=== PATIENT | male | born 1965 | race Caucasian/White ===

== ENCOUNTER 2018-02-16 07:51 | Day surgery (SDC) | payer MEDICAID, SELFPAY ==
[2018-02-16 08:14] VITALS: BP 125/77; PULSE 74; RESP 18; TEMP 36.6; O2SAT 98
[2018-02-16] MEDS: Lactated Ringers 1,000 ML 30 ML IV (08:44)
--- NOTE | 2018-02-16 09:50 | W.PM.DSUDISC ---
Discharge Plan Disposition Patient Disposition: HOME Condition: Good Discharge Details Reason For Visit: Colorectal cancer screening Attending Provider: Yury Horowitz Primary Care Provider: Kelsy Stearns Home Meds and New Rx's Prescriptions: Continue fluticasone 16 GM spray,suspension 50 mcg NS DAILY Qty: 3 RF: 3 atorvastatin 40 MG tablet 40 mg PO DAILY Qty: 90 RF: 3 sertraline 50 MG tablet 50 mg PO DAILY Qty: 90 RF: 3 budesonide-formoterol [Symbicort] 10.2 GM HFA aerosol inhaler 2 puff Inhalation BID Qty: 3 RF: 3 aspirin [Aspir-81] 81 MG tablet,delayed release (DR/EC) 81 mg PO DAILY RF: 0 nortriptyline 10 MG capsule 10 mg PO HS Qty: 90 RF: 3 omeprazole 20 MG capsule,delayed release(DR/EC) 20 mg PO DAILY Qty: 90 RF: 3 albuterol sulfate [ProAir HFA] 8.5 GM HFA aerosol inhaler 1 - 2 puff Inhalation Q4-6H PRN Qty: 3 RF: 3 Varicella-Zoster Ge/As01b/Pf [Shingrix Vial Kit] 50 MCG INJ 50 mcg IM ONCE Qty: 1 RF: 1 Discontinued bisacodyl [Dulcolax (bisacodyl)] 5 mg tablet,delayed release (DR/EC) 5 mg PO ONCE Qty: 4 RF: 0 polyethylene glycol 3350 [Miralax] 17 gram/dose powder 255 gm PO ONCE Qty: 255 RF: 0 Discharge Instructions Instructions: Colonoscopy (DC) Activity:: Activity as Tolerated Diet:: As Tolerated Discharge Orders Discharge Orders: Discharge Order (Routine); Ordered 02/16/18 Ordered By: Yury Horowitz DS: Diagnosis Discharge Diagnosis (1) Encounter for colorectal cancer screening: Status: Acute
--- NOTE | 2018-02-16 09:52 | W.COLOREPORT ---
Date of service: 02/16/18 Time of Service: 09:52 Colonoscopy Report Date of procedure: 02/16/18 Pre-op diagnosis general: Colorectal cancer screening Post-op diagnosis procedure note: other (Normal Colonoscopy to the cecum) Procedure: Colonoscopy to the cecum Surgeon: Yury Horowitz Anesthesia proc note operative: MAC (Wali Brown, REFRIGERATION SYSTEM INSTALLER: ASA 3 Mallampati class 2) Estimated blood loss (mL): 0 Complications: None Disposition: same day Indications: 53-year-old gentleman presenting for colorectal cancer screening by colonoscopy. He has never had a colonoscopy before. He has been asymptomatic. He has no family history of colorectal cancer. Prep: Miralax/Dulcolax (Prep Quality good) Findings: In examining the colon from cecum to anus, no abnormalities were noted. Procedure Description: The patient was seen in the day surgery waiting area. His identification was confirmed, and procedure check. He was then brought to the procedure room. Monitoring for telemetry, blood pressure, oxygen saturation, and end tidal CO2 monitoring were applied. An appropriate time out was performed to confirm, identification, allergies, medication, procedure, was performed. Sedation was titrated for affect by the REFRIGERATION SYSTEM INSTALLER; Once adequate sedation was achieved, I performed a inspection of the external perineum, and a digitial rectal examination. No significant external abnormalities were noted. On digital rectal examination, there was no blood, no masses, good rectal tone, and a normal prostate. I advanced the colonoscope from the anus to the cecum under direct visualization. The cecum was identified by the ileal-cecal valve, and the appendiceal orifice. The scope was then withdrawn in circumferential manner from the cecum to the rectum. No abnormalites were noted in the colon. The scope was then withdrawn into the rectum, and retroflexed. No abnormalities were noted of the rectum or anorectal junction. The scope was then withdrawn, terminating the procedure. There were no complications during the procedure, and the patient tolerated the procedure well. He was returned to the day surgery recovery area in good condition. Plan: Will continue with routine screening for colorectal cancer according to current consensus guidelines, which is currently 10 years.
[2018-02-16 10:58] VITALS: BP 125/77; PULSE 68; RESP 16; TEMP 35.6; O2SAT 99
== END 2018-02-16 11:20 | disposition home or self-care (01) ==
PROVIDERS: PCP Nurse Practitioner Family; Visit Provider Surgery
PROC: 0DJD8ZZ Inspection of Lower Intestinal Tract, Via Natural or Artificial Opening Endoscopic (ICD-10-PCS; CPT 45378; principal; 2018-02-16 09:30)
DX: Z12.11 Encounter for screening for malignant neoplasm of colon (principal); J44.9 Chronic obstructive pulmonary disease, unspecified; G47.33 Obstructive sleep apnea (adult) (pediatric); F17.210 Nicotine dependence, cigarettes, uncomplicated
CPT/HCPCS: 45378; J2250; J3010

== ENCOUNTER 2018-07-02 00:06 | Outpatient (CLI) | payer MEDICAID, SELFPAY ==
--- NOTE | 2018-07-02 08:30 | ETT_ITS ---
*[facility]* *[facility]* [address] [place] [address] Stress Electrocardiography Will protocol Date of study: 07/02/2018 *PATIENT PRESENTATION* Height: 162.6cm (64in) Blood Pressure: Weight: 73.6kg (162lb) BSA: 1.84m^2 Referring physician: Kelsy Stearns Ordering physician: Kelsy Stearns Impressions: Normal study after maximal exercise. Summary: 1. Stress ECG conclusions: The stress ECG is negative. Morales treadmill score: 10. This score predicts a low risk of cardiac events. 2. Stress: The target heart rate was achieved. Indication: R07.9, R06.09. History: REASON FOR TESTING: PATIENT REPORTING LEFT SIDED CHEST PAIN WITH ACTIVITY WHICH RESOLVES QUICKLY WITH REST. SIGNIFICANT PAST MEDICAL HISTORY: GERD. SMOKING STATUS: SMOKED FOR 40 YEARS 1.5 PPD. EXERCISE ROUTINE: DAILY ADL'S. PMH: COPD. Asthma. Risk factors: Family history of coronary artery disease. Current tobacco use. Dyslipidemia. Cholesterol: 158mg/dl. HDL: 38mg/dl. LDL: 112mg/dl. Triglycerides: 67mg/dl. ALLERGIES: NO KNOWN ALLERGIES. MEDICATIONS: FLUTICASONE NASAL SPRAY DAILY, SERTRALINE 50 MG DAILY, ASPIRIN 81 MG DAILY, NORTRIPTYLINE 10 MG HS, OMEPRAZOLE 20 MG DAILY, BUDESONIDE/FORMOTEROL HFA 160/4.5--2 PUFFS DAILY, ATORVASTATIN 40 MG DAILY, SUMATRIPTAN 50 MG PRN, TOPIRAMATE 25 MG BID, UMECLIDINIUM/VILANTEROL INHALATION DAILY, PROAIR HFA PRN. Protocol: Will protocol. Baseline ECG: SINUS RHYTHM. HR 72. Stress protocol: + +---+ + !Stage !HR !BP (mmHg) ! + +---+ + !Baseline supine !72 !134/76 (95) ! + +---+ + !Baseline standing !74 !136/72 (93) ! + +---+ + !Stage I; 1.7mph, 10degrees; 3 min !112!160/84 (109)! + +---+ + !Stage II; 2.5mph, 12degrees; 3 min !120!190/88 (122)! + +---+ + !Stage III; 3.4mph, 14degrees; 3 min!135!184/90 (121)! + +---+ + !Peak stress !145! ! + +---+ + !Recovery; 1 min !122!160/82 (108)! + +---+ + !Recovery; 3 min !86 !132/82 (99) ! + +---+ + !Recovery; 6 min !87 !128/88 (101)! + +---+ + * Stress results: STRESS TEST ENDED IN 10 MINUTES 40 SECONDS. NORMAL HEART RATE AND BLOOD PRESSURE TO EXERCISE TESTING. MAX HEART RATE: 145 87 % OF TARGET HEART RATE. PATIENT REACHED TARGET HEART RATE AT 9 MINUTES 40 SECONDS AT A NORMAL SPEED (4.2)/GRADE (16) OF STAGE 4 OF EXERCISE. THEN MODIFIED SPEED BRIEFLY AT STAGE 4 DUE TO PATIENT FATIGUE. AT 10 MINUTES 8 SECONDS OF MODIFIED STAGE 4, SPEED 3.5, GRADE 16. AT 10 MINUTES 21 SECONDS OF MODIFIED STAGE 4, SPEED 3, GRADE 16. AT 10 MINUTES 36 SECONDS OF MODIFIED STAGE 4, SPEED 2.7, GRADE 16. EXERCISE TESTING ENDED AT 10 MINUTES 36 SECONDS OF MODIFIED STAGE 4 DUE TO FATIGUE. MET'S: 11.71. OCCASIONAL PVC DURING PEAK EXERCISE. NO ANGINA. NO SIGNIFICANT ST SEGMENT CHANGES. FUNCTIONAL CAPACITY: AVERAGE CAPACITY. Maximal heart rate during stress was 145bpm (87% of maximal predicted heart rate). The maximal predicted heart rate was 166bpm. The target heart rate was achieved. The rate-pressure product for the peak heart rate and blood pressure was 15108kn Hg/min. Stress ECG: The stress ECG is negative. Morales treadmill score: 10. This score predicts a low risk of cardiac events. Study data: Rene Schreiber MD supervised and was readily available during the procedure. This study was interpreted by [facility]. Study status: Routine. Consent: The risks, benefits, and alternatives to the procedure were explained to the patient and informed consent was obtained. Procedure: Initial setup. A baseline ECG was recorded. Surface ECG leads and manual cuff blood pressure measurements were monitored. Heart sounds: Normal. Lung sounds: Abnormal. Treadmill exercise testing was performed using the Will protocol. Study completion: The patient tolerated the procedure well and was discharged from the lab. Discharge: The patient left the laboratory in stable condition. Birthdate: Patient birthdate: 1965. Sex: Gender: male. Study date: Study date: 07/02/2018. Study time: 00:01 AM. Electronically signed by Rene Schreiber MD 07/02/2018 10:49
== END 2018-07-02 00:26 ==
PROVIDERS: PCP Nurse Practitioner Family; Visit Provider Family Medicine
DX: R07.9 Chest pain, unspecified (principal); R06.09 Other forms of dyspnea; F17.200 Nicotine dependence, unspecified, uncomplicated; E78.5 Hyperlipidemia, unspecified; Z82.49 Family history of ischemic heart disease and other diseases of the circulatory system
CPT/HCPCS: 93017

== ENCOUNTER 2018-07-04 09:44 | Outpatient (CLI) | payer MEDICAID, SELFPAY ==
[2018-07-04 10:56] LABS: Hemoglobin A1C 5.7 % (4.5-6.2)
[2018-07-04 11:25] LABS: Anion Gap 8.6 mmol/L (3-11); BUN 15 mg/dL (7-18); CO2 27.4 mmol/L (21.0-32.0); CREATININE 0.89 mg/dL (0.70-1.30); Calcium 9.6 mg/dL (8.5-10.1); Chloride 105 mmol/L (98-107); Cholesterol 135 mg/dL (50-200); Glucose 97 mg/dL (70-100); HDL Cholesterol 28 mg/dL (40-60); LDL CHOLESTEROL 85 mg/dL (<100); Potassium 4.5 mmol/L (3.5-5.1); Sodium 141 mmol/L (136-145); Triglyceride 110 mg/dL (30-150)
== END 2018-07-04 10:04 ==
PROVIDERS: PCP Nurse Practitioner Family; Visit Provider Nurse Practitioner Family
DX: R73.01 Impaired fasting glucose (principal); Z13.1 Encounter for screening for diabetes mellitus; E78.5 Hyperlipidemia, unspecified
CPT/HCPCS: 36415; 80048; 80061; 83721; 83036

== ENCOUNTER 2019-05-31 02:15 | Outpatient (CLI) | payer OTHER, MEDICAID, SELFPAY ==
[2019-05-31] MEDS: Inhaler, Assist Device 1 EACH MC (10:27)
[2019-05-31] MEDS: Albuterol HFA 18 GM 200 PUFF INH IH (10:27)
== END 2019-05-31 02:35 ==
PROVIDERS: PCP Nurse Practitioner Family; Visit Provider Pediatrics Pediatric Rheumatology
DX: J44.9 Chronic obstructive pulmonary disease, unspecified (principal)
CPT/HCPCS: 94060; 94729

== ENCOUNTER 2019-07-04 00:45 | Outpatient (CLI) | payer MEDICAID, SELFPAY ==
--- NOTE | 2019-07-04 12:51 | DI.CTLCSR_ITS ---
EXAM: CT CHEST LUNG CANCER SCREEN CLINICAL HISTORY: NICOTINE DEPENDENCE, F17.200 TECHNIQUE: Noncontrast low-dose screening protocol. COMPARISON: No exams were available for comparison FINDINGS: The heart size is normal. Aorta is normal in diameter. There are mild aortic calcifications. There are no pleural or pericardial effusions. There are changes of severe paraseptal and mild to moderat e central lobular emphysema. There is scarring at the right lung apex. No pulmonary nodules are see n. IMPRESSION: Lung RADS Cat 1 - Negative: No nodules and definitely benign nodules. Annual low-dose screening CT i s recommended.
== END 2019-07-04 01:05 ==
PROVIDERS: PCP Nurse Practitioner Family; Visit Provider Internal Medicine
DX: Z12.2 Encounter for screening for malignant neoplasm of respiratory organs (principal); F17.200 Nicotine dependence, unspecified, uncomplicated; J43.8 Other emphysema
CPT/HCPCS: G0297

== ENCOUNTER 2019-11-13 04:25 | Outpatient (CLI) | payer MEDICAID, SELFPAY ==
[2019-11-13 13:49] LABS: Hemoglobin A1C 5.5 % (3.8-5.6)
[2019-11-13 13:58] LABS: Anion Gap 8.4 mmol/L (3-11); BUN 12 mg/dL (7-18); CO2 27.6 mmol/L (21.0-32.0); CREATININE 0.99 mg/dL (0.70-1.30); Calcium 9.2 mg/dL (8.5-10.1); Calculated LDL 81 mg/dL (<100); Chloride 104 mmol/L (98-107); Cholesterol 126 mg/dL (<200); Glucose 98 mg/dL (74-106); HDL Cholesterol 38 mg/dL (40-60); Potassium 4.2 mmol/L (3.5-5.1); Sodium 140 mmol/L (136-145); Triglyceride 39 mg/dL (<150)
== END 2019-11-13 04:45 ==
PROVIDERS: PCP Nurse Practitioner Family; Visit Provider Nurse Practitioner Family
DX: E78.5 Hyperlipidemia, unspecified (principal); R73.01 Impaired fasting glucose; Z51.81 Encounter for therapeutic drug level monitoring
CPT/HCPCS: 36415; 80048; 80061; 83036

== ENCOUNTER 2019-12-23 01:22 | Outpatient (CLI) | payer MEDICAID, SELFPAY ==
--- NOTE | 2019-12-23 | DI.CT_ITS ---
EXAM: CT CHEST WO CLINICAL HISTORY: COPD,J44.9,F/U RT APICAL MASS. TECHNIQUE: Imaging protocol: Axial computed tomography images were obtained and coronal and sagittal reformatted images were created and reviewed. COMPARISON: CT CT CHEST LUNG CANCER SCREEN from 07/04/2019 FINDINGS: Tracheobronchial tree: Patent where visualized. Mediastinum and Kamala: No dominant adenopathy or fluid collection. Pulmonary parenchyma: The masslike density in the right lung apex is unchanged. There is a calcified granuloma in the left lower lobe. Severe paraseptal and moderately severe centrilobular emphysema. Lung Nodules: No new pulmonary nodules are appreciated. Pleura: No effusion or pneumothorax. Heart: The heart is not dilated. No coronary artery calcifications are seen. No pericardial effusion. Aorta: Thoracic aorta non-dilated.Atherosclerosis. Upper abdomen: Unremarkable. Bones: Mild degenerative changes. IMPRESSION: 1. Stable masslike density in the right lung apex. 2. Paraseptal and centrilobular emphysema. 3. No new pulmonary nodules. RADIATION DOSE DELIVERED: 71.47mGy.cm Total DLP 71.47mGy.cm Total DLP 71.47mGy.cm Total DLP 71.47mGy.cm Total DLP 71.47mGy.cm Total DLP DATA REPOSITORY: All CT scans at this facility are submitted to the National Radiology Data Registry (NRDR) Dose Index Registry (DIR) with the [employer] (ACR). RADIATION OPTIMIZATION: All CT scans at this facility use at least one of these dose optimization te chniques: automated exposure control; mA and/or kV adjustment per patient size (includes targeted exa ms where dose is matched to clinical indication); or iterative reconstruction.
== END 2019-12-23 01:42 ==
PROVIDERS: PCP Nurse Practitioner Family; Visit Provider Internal Medicine
DX: J44.9 Chronic obstructive pulmonary disease, unspecified (principal); R91.8 Other nonspecific abnormal finding of lung field; J43.2 Centrilobular emphysema
CPT/HCPCS: 71250

== ENCOUNTER 2020-11-05 00:37 | Emergency (ER) | payer MEDICAID, SELFPAY ==
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
[2020-11-05 00:39] VITALS: BP 157/87; PULSE 87; RESP 16; TEMP 36.4; O2SAT 98
[2020-11-05] MEDS: Ibuprofen 600 MG TAB PO (02:09)
== END 2020-11-05 03:05 | disposition home or self-care (01) ==
LOC: ER 02:17
PROVIDERS: Emergency Provider Emergency Medicine; PCP Nurse Practitioner Family
DX: S00.83XA Contusion of other part of head, initial encounter (principal); Y04.2XXA Assault by strike against or bumped into by another person, initial encounter
CPT/HCPCS: 99283; 99282

== ENCOUNTER 2021-01-08 02:39 | Outpatient (CLI) | payer MEDICAID, SELFPAY ==
[2021-01-08 13:32] LABS: HCT 48.1 % (40.0-50.0); MCH 31.7 pg (27.0-33.0); MCHC 33.3 % (32.0-36.0); MCV 95.4 fL (80-95); MPV 8.6 fL (8.0-11.0); Platelet Count 381 10^3/uL (130-400); RBC 5.04 10^6/uL (4.36-5.78); RDW 13.6 % (11.8-14.1); RDW-SD 48.2 fL; WBC 8.99 10^3/uL (4.4-10.8)
[2021-01-08 15:43] LABS: Anion Gap 10.8 mmol/L (3-11); BUN 14 mg/dL (7-18); CO2 26.2 mmol/L (21.0-32.0); Calcium 9.1 mg/dL (8.5-10.1); Calculated LDL 95 mg/dL (<100); Chloride 103 mmol/L (98-107); Cholesterol 146 mg/dL (<200); Glucose 104 mg/dL (74-106); HDL Cholesterol 35 mg/dL (40-60); Potassium 4.3 mmol/L (3.5-5.1); Sodium 140 mmol/L (136-145); Triglyceride 80 mg/dL (<150)
== END 2021-01-08 02:40 | disposition home or self-care (01) ==
LOC: LBO 02:39
PROVIDERS: PCP Nurse Practitioner Family; Visit Provider Nurse Practitioner Family
DX: Z12.2 Encounter for screening for malignant neoplasm of respiratory organs; R73.01 Impaired fasting glucose; Z51.81 Encounter for therapeutic drug level monitoring; E78.5 Hyperlipidemia, unspecified
CPT/HCPCS: 36415; 80048; 80061; 85027

== ENCOUNTER 2021-01-08 03:17 | Outpatient (CLI) | payer MEDICAID, SELFPAY ==
--- NOTE | 2021-01-08 08:00 | DI.CTLCSR_ITS ---
Exam(s) CT CHEST LUNG CANCER SCREEN EXAM: CT CHEST LUNG CANCER SCREEN CLINICAL HISTORY: Screening for lung cancer, CURRENT SMOKER, F17.210, Z12.2 TECHNIQUE: CT examination of the chest was performed utilizing low-dose lung cancer screening protoc ol. COMPARISON: CT CT CHEST WO from 12/23/2019 FINDINGS: Images obtained through the upper abdomen show unremarkable appearance of visualized portions of the liver and spleen. There is no mediastinal or hilar adenopathy. Mediastinal vascular structures appear intact by noncon trast criteria. Tracheobronchial tree appears intact. No pleural effusion or pleural-based mass. There are changes of severe bullous emphysema as noted on prior examinations. There is a new spicula deborah nodule associated with the minor fissure on the right, this measures 11 x 12 x 6 millimeters in d iameter. This was not present on prior CT of December 2019. A left upper lobe intrapulmonary nodule which is noncalcified is again noted and unchanged. Calcifie d left lower lobe nodule is also noted and unchanged. IMPRESSION: New suspicious lesion of the right lung in a patient with severe bullous emphysema. PET-CT or tissue sampling recommended. Lung RADS Cat 4B - Suspicious: Findings for which additional diagnostic testing and/or tissue samplin g is recommended. RADIATION DOSE DELIVERED: 77.76mGy.cm Total DLP 1.84mGy CTDIvol 77.76mGy.cm Total DLP 1.84mGy CTDIvol RADIATION OPTIMIZATION: All CT scans at this facility use at least one of these dose optimization te chniques: automated exposure control; mA and/or kV adjustment per patient size (includes targeted exa ms where dose is matched to clinical indication); or iterative reconstruction.
== END 2021-01-08 03:37 ==
PROVIDERS: PCP Nurse Practitioner Family; Visit Provider Nurse Practitioner Family
DX: F17.210 Nicotine dependence, cigarettes, uncomplicated (principal); Z12.2 Encounter for screening for malignant neoplasm of respiratory organs; R91.1 Solitary pulmonary nodule; J43.9 Emphysema, unspecified
CPT/HCPCS: 71271

== ENCOUNTER 2021-07-01 21:15 | Outpatient (CLI) | payer MEDICAID, SELFPAY ==
--- NOTE | 2021-07-01 11:29 | DI.RAD_ITS ---
Exam(s) XR THUMB LT EXAM: XR THUMB LT EXAM DATE/TIME: CLINICAL HISTORY: Chronic lt thumb pain, remote h/o fx M79.645 PAIN lT FINGER G89.29 CHRONIC. TECHNIQUE: 2D digital imaging was performed of the left finger. Four views were obtained. PA/AP, o blique, and lateral views were obtained. COMPARISON: None. FINDINGS: BONES: No acute fracture is present. No bony destructive lesion is seen. JOINTS: No dislocation is present. Mild periarticular spurring is seen at the interphalangeal joint of the thumb. SOFT TISSUE: Normal. IMPRESSION: Mild degenerative changes of the left thumb. DATA REPOSITORY: RADIATION DOSE DELIVERED:
== END 2021-07-01 21:35 ==
PROVIDERS: PCP Nurse Practitioner Family; Visit Provider Nurse Practitioner Family
DX: M79.644 Pain in right finger(s) (principal); G89.29 Other chronic pain; M25.641 Stiffness of right hand, not elsewhere classified
CPT/HCPCS: 73140

== ENCOUNTER → 2021-12-27 01:09 | Outpatient (CLI) | payer MEDICAID, SELFPAY ==
--- NOTE | 2021-12-27 08:00 | DI.CT_ITS ---
Exam(s) CT CHEST W EXAM: CT CHEST W CLINICAL HISTORY: 6mo f/u RUL opacity/nodule,COMPARE WITH PET CT 09/08/21,R91.8. TECHNIQUE: Multi planar reconstructions were performed. CONTRAST MATERIAL: Omnipaque 350; 75 cc COMPARISON: CT CT CHEST LUNG CANCER SCREEN from 01/08/2021 FINDINGS: CHEST: LUNGS: Severe emphysematous disease again noted in both lung linton. The previously described spicul ated nodule in the right upper lobe is again noted but has somewhat decreased in size, presently chin uring 8 by 9 millimeters, previously measuring 11 x 12 millimeters. No new nodules in either lung fi eld and there are no pleural effusions. Calcified granuloma in the left lower lobe again noted. MEDIASTINUM: There is no hilar nor mediastinal adenopathy. Visualized thyroid unremarkable. CARDIAC: Heart size is normal. There is no pericardial effusion.Caliber of the thoracic aorta is wit hin normal limits. VISUALIZED UPPER ABDOMEN:There are no significant adrenal masses. No splenomegaly. OSSEOUS: No significant osseous lesions.No fractures. None. IMPRESSION: 1. The previously described spiculated nodule in the right upper lobe has decreased in size when comp ared to 01/08/2021, presently measuring approximately 8 x 9 millimeters. No other significant lung n odules evident and no pleural effusions. No intrathoracic adenopathy. 2. 3. RADIATION DOSE DELIVERED: 481.85mGy.cm Total DLP DATA REPOSITORY: All CT scans at this facility are submitted to the National Radiology Data Registry (NRDR) Dose Index Registry (DIR) with the [employer] (ACR). RADIATION OPTIMIZATION: All CT scans at this facility use at least one of these dose optimization te chniques: automated exposure control; mA and/or kV adjustment per patient size (includes targeted exa ms where dose is matched to clinical indication); or iterative reconstruction.
[2021-12-27] MEDS: Omnipaque 350 MG/ML 100 ML BTL IJ (15:51)
== END ==
PROVIDERS: PCP Nurse Practitioner Family; Visit Provider Nurse Practitioner Family
DX: R91.1 Solitary pulmonary nodule
CPT/HCPCS: 71260; J3490

== ENCOUNTER 2022-01-26 13:40 | Outpatient (REF) | payer MEDICAID, SELFPAY ==
[2022-01-28 10:37] LABS: COVID-19 RT-PCR UVMMC Result Presumptive Positive (Negative)
== END 2022-01-26 13:41 | disposition home or self-care (01) ==
LOC: LBN 13:40
PROVIDERS: PCP Nurse Practitioner Family; Visit Provider Nurse Practitioner Family
DX: Z20.822 Contact with and (suspected) exposure to COVID-19 (principal); R05.8 Other specified cough
CPT/HCPCS: U0003

== ENCOUNTER 2022-02-02 02:59 | Outpatient (CLI) | payer MEDICAID, SELFPAY ==
[2022-02-02 11:04] LABS: Abs Immature Grans 0.07 10^3/uL (0.0-0.06); Absolute Lymphocyte Count 3.23 10^3/uL (1.2-3.4); Absolute Monocyte Count 0.86 10^3/uL (0.1-0.8); Absolute Neutrophil Count 6.92 10^3/uL (1.2-6.7); Eosinophils % 2.9; HCT 48.3 % (40.0-50.0); HGB 16.1 g/dL (13.5-17.5); Immature Grans % 0.6; MCH 31.8 pg (27.0-33.0); MCHC 33.3 % (32.0-36.0); MCV 96 fL (80-95); MPV 8.3 fL (8.0-11.0); Monocytes % 7.5; Platelet Count 477 10^3/uL (130-400); RBC 5.06 10^6/uL (4.36-5.78); RDW 14.1 % (11.8-14.1); RDW-SD 49.6 fL; WBC 11.53 10^3/uL (4.4-10.8)
[2022-02-02 11:05] LABS: Absolute Basophil Count 0.12 10^3/uL (0.0-0.2); Absolute Eosinophil Count 0.33 10^3/uL (0.0-0.7)
[2022-02-02 11:46] LABS: ALT 31 U/L (16-63); AST 11 U/L (15-37); Albumin 3.3 g/dL (3.4-5.0); Alkaline Phosphatase 130 U/L (46-116); Anion Gap 7.5 mmol/L (3-11); BUN 14 mg/dL (7-18); Bilirubin, Total 0.3 mg/dL (0.2-1.0); CO2 29.5 mmol/L (21.0-32.0); Calcium 9.2 mg/dL (8.5-10.1); Calculated LDL 86 mg/dL (<100); Chloride 103 mmol/L (98-107); Cholesterol 137 mg/dL (<200); Estimated GFR 87.24 (mL/min/1.73m2); Glucose 122 mg/dL (74-106); HDL Cholesterol 40 mg/dL (40-60); Sodium 140 mmol/L (136-145); Total Protein 7.6 g/dL (6.4-8.2); Triglyceride 58 mg/dL (<150)
== END 2022-02-02 03:00 | disposition home or self-care (01) ==
LOC: LBO 02:59
PROVIDERS: PCP Nurse Practitioner Family; Visit Provider Nurse Practitioner Family
DX: E78.5 Hyperlipidemia, unspecified (principal); R73.01 Impaired fasting glucose; Z79.899 Other long term (current) drug therapy
CPT/HCPCS: 36415; 80053; 80061; 85025

== ENCOUNTER → 2022-02-21 01:21 | Outpatient (CLI) | payer MEDICAID, SELFPAY ==
--- NOTE | 2022-02-21 08:08 | DI.RAD_ITS ---
Exam(s) XR CHEST 2V PA LATERAL EXAM: XR CHEST 2V PA LATERAL CLINICAL HISTORY: r/o secondary bacterial PNA, recent COVID,U07.1,exac of copd TECHNIQUE: 2D digital imaging was performed. COMPARISON: CT CT CHEST W from 12/27/2021 FINDINGS: HEART: Normal size. Aorta: PULMONARY VASCULATURE: Normal. LUNGS: Emphysematous changes and mild scarring. Left-sided calcified nodule. No infiltrates. PLEURAL SPACE: No pleural effusion or pneumothorax. BONE:Unremarkable for age. IMPRESSION: No acute abnormality. DATA REPOSITORY: RADIATION DOSE DELIVERED:
== END ==
PROVIDERS: PCP Nurse Practitioner Family; Visit Provider Nurse Practitioner Family
DX: J44.1 Chronic obstructive pulmonary disease with (acute) exacerbation (principal); Z86.16 Personal history of COVID-19; R91.1 Solitary pulmonary nodule
CPT/HCPCS: 71046

== ENCOUNTER → 2022-12-30 01:00 | Outpatient (CLI) | payer MEDICAID, SELFPAY ==
--- NOTE | 2022-12-30 12:54 | DI.CTLCSR_ITS ---
Exam(s) CT CHEST LUNG CANCER SCREEN EXAM: CT CHEST LUNG CANCER SCREEN CLINICAL HISTORY: Screening for lung cancer,CURRENT SMOKER, F17.210 TECHNIQUE: Imaging Protocol: Axial computed tomography images with coronal and sagittal reformatted images were created and reviewed. Low dose screening protocol. COMPARISON: CT CT CHEST W from 12/27/2021 FINDINGS: Tracheobronchial tree: No bronchiectasis or mucus plugging.. Mediastinum and Kamala: No dominant adenopathy or fluid collection. Pulmonary parenchyma: No consolidation or dominant measurable mass. Severe emphysematous changes in t he upper lobes. Area of scarring noted in the right upper lobe. Ischial area of scarring noted at t he minor fissure. Scarring left lung apex stable small nodule left upper lobe, adjacent to left hear t border.. Lung Nodules: Calcified granuloma left lower lobe. Pleura: No effusion. No pneumothorax. Heart: The heart is not dilated. No coronary artery calcifications are seen. Aorta: Thoracic aorta non-dilated. Minimal calcifications. Upper abdomen: Unremarkable. Bones: Unremarkable for age. Soft Tissues: Unremarkable. IMPRESSION: No suspicious pulmonary nodules. Severe emphysematous changes and areas of scarring. Lung RADS Cat 1 - Negative: No nodules and definitely benign nodules Lung-RADS 1.0 CATEGORIES: Category 0 - Prior chest CT exam(s) being located for comparison. Category 1 - Annual screening in 12 months. No nodules or definitely benign nodules. Category 2 - Annual screening in 12 months. Benign appearance. Nodules with low likelihood of becomin g active cancer. Category 3 - 6-month follow-up. Probably benign. Short-term follow-up suggested. Nodules with low lik elihood of becoming active cancer. Category 4A - 3-month follow-up and CT/PET if >8 mm in size. Suspicious finding. Findings which requi re additional testing. Category 4B - Findings which require additional testing and tissue sampling. Category 4X - Category 3 or 4 nodules with additional features or imaging findings that increases the suspicion of malignancy. Modifier S- Potentially clinically significant findings (non lung cancer) RADIATION DOSE DELIVERED: 77.81mGy.cm Total DLP DATA REPOSITORY: All CT scans at this facility are submitted to the National Radiology Data Registry (NRDR) Dose Index Registry (DIR) with the [employer] ([employer]). RADIATION OPTIMIZATION: All CT scans at this facility use at least one of these dose optimization te chniques: automated exposure control; mA and/or kV adjustment per patient size (includes targeted exa ms where dose is matched to clinical indication); or iterative reconstruction.
== END ==
PROVIDERS: PCP Nurse Practitioner Family; Visit Provider Nurse Practitioner Family
DX: F17.210 Nicotine dependence, cigarettes, uncomplicated (principal); Z12.2 Encounter for screening for malignant neoplasm of respiratory organs
CPT/HCPCS: 71271

== ENCOUNTER 2023-02-03 02:31 | Outpatient (CLI) | payer MEDICAID, SELFPAY ==
[2023-02-03 09:27] LABS: Abs Immature Grans 0.03 10^3/uL (0.0-0.06); Absolute Eosinophil Count 0.22 10^3/uL (0.0-0.7); Absolute Lymphocyte Count 2.29 10^3/uL (1.2-3.4); Absolute Monocyte Count 0.69 10^3/uL (0.1-0.8); Absolute Neutrophil Count 5.72 10^3/uL (1.2-6.7); Basophils % 1.1; Eosinophils % 2.4; HCT 50.1 % (40.0-50.0); HGB 16.7 g/dL (13.5-17.5); Immature Grans % 0.3; Lymphocytes % 25.3; MCH 31.6 pg (27.0-33.0); MCHC 33.3 % (32.0-36.0); MCV 95 fL (80-95); MPV 8.5 fL (8.0-11.0); Monocytes % 7.6; Neutrophils % 63.3; Platelet Count 390 10^3/uL (130-400); RBC 5.28 10^6/uL (4.36-5.78); RDW 13.9 % (11.8-14.1); RDW-SD 49.2 fL; WBC 9.05 10^3/uL (4.4-10.8)
[2023-02-03 09:45] LABS: Hemoglobin A1C 5.8 % (<5.7)
[2023-02-03 09:53] LABS: ALT 27 U/L (16-63); AST 14 U/L (15-37); Albumin 3.6 g/dL (3.4-5.0); Alkaline Phosphatase 115 U/L (46-116); Anion Gap 8.1 mmol/L (3-11); BUN 14 mg/dL (7-18); Bilirubin, Total 0.4 mg/dL (0.2-1.0); CO2 26.9 mmol/L (21.0-32.0); CREATININE 1.1 mg/dL (0.70-1.30); Calcium 9.4 mg/dL (8.5-10.1); Calculated LDL 100 mg/dL (<100); Chloride 103 mmol/L (98-107); Cholesterol 151 mg/dL (<200); Estimated GFR 77.33 (mL/min/1.73m2); Glucose 116 mg/dL (74-106); HDL Cholesterol 37 mg/dL (40-60); Potassium 3.9 mmol/L (3.5-5.1); Sodium 138 mmol/L (136-145); Total Protein 7.5 g/dL (6.4-8.2); Triglyceride 70 mg/dL (<150)
== END 2023-02-03 02:32 | disposition home or self-care (01) ==
LOC: LBO 02:31
PROVIDERS: PCP Nurse Practitioner Family; Visit Provider Nurse Practitioner Family
DX: R73.01 Impaired fasting glucose (principal); E78.5 Hyperlipidemia, unspecified; Z51.81 Encounter for therapeutic drug level monitoring; J44.9 Chronic obstructive pulmonary disease, unspecified
CPT/HCPCS: 36415; 80053; 80061; 83036; 85025

== ENCOUNTER 2024-03-26 01:43 | Outpatient (CLI) | payer MEDICAID, SELFPAY ==
--- NOTE | 2024-03-26 06:45 | DI.CTLCSR_ITS ---
Exam(s) CT CHEST LUNG CANCER SCREEN EXAM: CT CHEST LUNG CANCER SCREEN CLINICAL HISTORY: Screening for lung cancer,current smoker, f17.210 TECHNIQUE: Imaging Protocol: Axial computed tomography images with coronal and sagittal reformatted images were created and reviewed. Low dose screening protocol. COMPARISON: CT CT CHEST LUNG CANCER SCREEN from 07/04/[address] CHEST LUNG CANCER SCREEN from 12/30/2022 FINDINGS: Tracheobronchial tree: No bronchiectasis or mucus plugging. Mediastinum and Kamala: No dominant adenopathy or fluid collection. Pulmonary parenchyma: No consolidation or dominant measurable mass. Severe emphysematous changes in t he upper lobes. Stable areas of scarring in the upper lobes. Stable small focal area of scarring an terior right middle lobe. Stable nodule versus focal scarring adjacent to the left side of the ascen ding aorta. Lung Nodules: Calcified granuloma again noted in left lower lobe. Pleura: No effusion. No pneumothorax. Heart: The heart is not dilated. No coronary artery calcifications are seen. No pericardial effusion. Aorta: Thoracic aorta non-dilated. Upper abdomen: Unremarkable. Bones: Unremarkable for age. Soft Tissues: Unremarkable. IMPRESSION: No suspicious pulmonary nodules. Lung RADS Cat 1 - Negative: No nodules and definitely benign nodules Lung-RADS 1.0 CATEGORIES: Category 0 - Prior chest CT exam(s) being located for comparison. Category 1 - Annual screening in 12 months. No nodules or definitely benign nodules. Category 2 - Annual screening in 12 months. Benign appearance. Nodules with low likelihood of becomin g active cancer. Category 3 - 6-month follow-up. Probably benign. Short-term follow-up suggested. Nodules with low lik elihood of becoming active cancer. Category 4A - 3-month follow-up and CT/PET if >8 mm in size. Suspicious finding. Findings which requi re additional testing. Category 4B - Findings which require additional testing and tissue sampling. Category 4X - Category 3 or 4 nodules with additional features or imaging findings that increases the suspicion of malignancy. Modifier S- Potentially clinically significant findings (non lung cancer) RADIATION DOSE DELIVERED: !Error Total DLP DATA REPOSITORY: All CT scans at this facility are submitted to the National Radiology Data Registry (NRDR) Dose Index Registry (DIR) with the [employer] ([employer]). RADIATION OPTIMIZATION: All CT scans at this facility use at least one of these dose optimization te chniques: automated exposure control; mA and/or kV adjustment per patient size (includes targeted exa ms where dose is matched to clinical indication); or iterative reconstruction.
== END 2024-03-26 02:03 ==
LOC: DI 01:43
PROVIDERS: PCP Nurse Practitioner Adult Health; Visit Provider Nurse Practitioner Adult Health
DX: F17.210 Nicotine dependence, cigarettes, uncomplicated (principal); Z12.2 Encounter for screening for malignant neoplasm of respiratory organs
CPT/HCPCS: 71271

== ENCOUNTER 2024-09-02 03:36 | Outpatient (CLI) | payer MEDICAID, SELFPAY ==
[2024-09-02 13:08] LABS: Hemoglobin A1C 5.8 % (<5.7)
[2024-09-02 13:09] LABS: ALT 33 U/L (16-63); AST 17 U/L (15-37); Albumin 3.5 g/dL (3.4-5.0); Alkaline Phosphatase 124 U/L (46-116); Anion Gap 5.2 mmol/L (3-11); BUN 13 mg/dL (7-18); Bilirubin, Total 0.3 mg/dL (0.2-1.0); CO2 28.8 mmol/L (21.0-32.0); Calcium 9.1 mg/dL (8.5-10.1); Calculated LDL 87 mg/dL (<100); Chloride 105 mmol/L (98-107); Cholesterol 140 mg/dL (<200); Estimated GFR 86.16 (mL/min/1.73m2); Glucose 123 mg/dL (74-106); HDL Cholesterol 38 mg/dL (>or=40); Potassium 4.2 mmol/L (3.5-5.1); Sodium 139 mmol/L (136-145); Total Protein 7.4 g/dL (6.4-8.2); Triglyceride 78 mg/dL (<150)
== END 2024-09-02 03:37 | disposition home or self-care (01) ==
PROVIDERS: PCP Nurse Practitioner Adult Health; Visit Provider Nurse Practitioner Adult Health
DX: F32.A Depression, unspecified (principal); E78.5 Hyperlipidemia, unspecified; R73.01 Impaired fasting glucose
CPT/HCPCS: 36415; 80053; 80061; 83036